=== PATIENT | female | born 1965 | race Caucasian/White ===

== ENCOUNTER 2021-01-24 13:55 | Emergency (ER) | payer MEDICAID, MEDICARE ==
[~2021-01-24] VITALS: Ht 157.5 cm; Wt 77.5 kg
[2021-01-24] MEDS ORDERED: METFORMIN (14:13)
[2021-01-24] MEDS ORDERED: RISPERDAL (14:13)
[2021-01-24] MEDS ORDERED: SODIUM CHLORIDE 0.9% 1,000 ML IV ONE (21:45)
[2021-01-24] MEDS ORDERED: KETOROLAC 15MG/ML VIAL IV ONE (22:15)
[2021-01-24 22:32] LABS: BASOPHILS % 0.9 % (0.0-2.0); EOSINOPHILS % 1.3 % (0.0-5.0); HEMATOCRIT. 40.8 % (36.0-48.0); HEMOGLOBIN. 13.1 g/dL (12.0-16.0); MEAN CORPUSCULAR HEMOGLOBIN 26.1 pg (28.0-32.0); MEAN PLATELET VOLUME 8.3 fl (7.4-10.4); MONOCYTES % 3.8 % (2.0-8.0); PLATELET 269 x1000/uL (130-400); RED BLOOD CELL COUNT 5.03 mill/uL (4.2-5.4); RED CELL DISTRIBUTION WIDTH 13.8 % (11.6-14.6)
[2021-01-24 22:33] LABS: CLARITY URINE CLOUDY (CLEAR); COLOR URINE DARK YELLOW (YELLOW); KETONES URINE TRACE (NEGATIVE); LEUKOCYTE ESTERASE URINE TRACE (NEGATIVE); NITRITE URINE NEGATIVE (NEGATIVE); OCCULT BLOOD URINE NEGATIVE (NEGATIVE); PROTEIN URINE NEGATIVE (NEGATIVE); SPECIFIC GRAVITY URINE 1.025 (1.005-1.030); UROBILINOGEN URINE 0.2 E.U./dL (0.2-1.0)
[2021-01-24 22:39] LABS: CHLORIDE 107 mEq/L (98-107)
[2021-01-24 22:42] LABS: PROTHROMBIN TIME 10.7 sec (9.6-11.0)
[2021-01-24] MEDS ORDERED: DOCU-150 MT (23:45)
[2021-01-24] MEDS ORDERED: HYDR25SU37 RC (23:45)
[2021-01-24] MEDS ORDERED: OMEP20CA14 MT (23:45)
[2021-01-25 04:45] VITALS: BP 125/73
== END 2021-01-25 05:10 | disposition home or self-care (01) ==
LOC: ER 13:55
DX: R10.32 Left lower quadrant pain (principal); R19.7 Diarrhea, unspecified; K59.00 Constipation, unspecified; K62.5 Hemorrhage of anus and rectum; K64.4 Residual hemorrhoidal skin tags; E11.9 Type 2 diabetes mellitus without complications; F20.9 Schizophrenia, unspecified; Z98.890 Other specified postprocedural states
CPT/HCPCS: 36415; 74176; 80053; 81003; 81025; 83690; 85025; 85610; 96361; 96374; 99285; J1885; J7030

== ENCOUNTER 2024-05-15 08:57 | Emergency (ER) | payer MEDICAID ==
[~2024-05-15] VITALS: Ht 167.6 cm; Wt 109.0 kg
[~2024-05-15 08:57] MED LIST: DOCU-422 MT; HYDR25SU37 RC; METFORMIN; OMEP20CA14 MT; RISPERDAL
[2024-05-15 09:05] VITALS: BP 121/75; O2SAT 95
[2024-05-15] MEDS ORDERED: AZIT250T12 MT (10:20)
[2024-05-15] MEDS ORDERED: BENZ100C86 MT (10:21)
[2024-05-15 10:35] VITALS: PULSE 98; RESP 18; TEMP 36.72516; O2SAT 96
== END 2024-05-15 10:35 | disposition home or self-care (01) ==
LOC: ER 08:57
DX: J06.9 Acute upper respiratory infection, unspecified (principal); E11.9 Type 2 diabetes mellitus without complications; Z88.0 Allergy status to penicillin; Z79.899 Other long term (current) drug therapy; Z86.59 Personal history of other mental and behavioral disorders; Z98.890 Other specified postprocedural states
CPT/HCPCS: 71045; 99283

== ENCOUNTER 2024-06-04 10:03 | Emergency (ER) | payer MEDICAID ==
[~2024-06-04] VITALS: Ht 160 cm; Wt 93.0 kg
[~2024-06-04 10:03] MED LIST changes: +AZIT250T12 MT; +BENZ100C86 MT
[2024-06-04 10:11] VITALS: TEMP 98.6; O2SAT 95
[2024-06-04 10:23] VITALS: O2SAT 99
[2024-06-04] MEDS: BACITRACIN ZINC OINT UDPKT TOP ONE (10:43)
[2024-06-04 12:42] VITALS: BP 111/72; PULSE 88; RESP 18
[2024-06-04] MEDS: IBUPROFEN 400MG TABLET PO NR (12:42)
== END 2024-06-04 14:01 | disposition home or self-care (01) ==
LOC: ER 10:03
DX: S93.402A Sprain of unspecified ligament of left ankle, initial encounter (principal); S80.211A Abrasion, right knee, initial encounter; E11.9 Type 2 diabetes mellitus without complications; F20.9 Schizophrenia, unspecified; Z88.0 Allergy status to penicillin; Z79.899 Other long term (current) drug therapy; W10.9XXA Fall (on) (from) unspecified stairs and steps, initial encounter; Y93.89 Activity, other specified; Y92.89 Other specified places as the place of occurrence of the external cause; Y99.8 Other external cause status
CPT/HCPCS: 73590; 73610; 99283; 99284